=== PATIENT | female | born 1945 | race Caucasian/White ===

== ENCOUNTER → 2016-10-31 | Outpatient (CLI) | payer MEDICARE, BC ==
[~2016-10-31] MED LIST: ASPIRIN E.C. 8181 MG PO; ATROVENT I0.2 MG/1 M IH; FERROUS SU325 MG/TAB PO; FLEXERIL 1010 MG/TAB PO; FOLIC ACID800 MCG PO; FOSAMAX 70MG TA70 MG PO; LASIX 40MG TABL40 MG PO; PREDNISONE10 MG PO; PULMICORT0.5 MG/2 M IH; SINGULAIR 110 MG/TAB PO; THEO-24 20200 MG/CAP PO; VITAMINC500CH; ZYRTEC 10MG10 MG PO
== END ==
LOC: MHCPAIN 10:03
DX: G89.29 Other chronic pain (principal); M43.16 Spondylolisthesis, lumbar region; M53.2X6 Spinal instabilities, lumbar region; M47.817 Spondylosis without myelopathy or radiculopathy, lumbosacral region; Z87.891 Personal history of nicotine dependence
CPT/HCPCS: G0463

== ENCOUNTER → 2016-11-10 | Outpatient (CLI) | payer MEDICARE, BC | LOC: MHCPAIN 12:46 | DX: M47.817 Spondylosis without myelopathy or radiculopathy, lumbosacral region (principal) ==

== ENCOUNTER → 2016-11-15 | Outpatient (CLI) | payer MEDICARE, BC | LOC: MHCPAIN 12:41 | DX: G89.29 Other chronic pain (principal); M47.817 Spondylosis without myelopathy or radiculopathy, lumbosacral region; M43.16 Spondylolisthesis, lumbar region; Z87.891 Personal history of nicotine dependence | CPT/HCPCS: G0463 ==

== ENCOUNTER → 2016-11-17 | Outpatient (CLI) | payer MEDICARE, BC | LOC: MHCPAIN 14:08 | DX: M47.817 Spondylosis without myelopathy or radiculopathy, lumbosacral region (principal) ==

== ENCOUNTER → 2016-11-30 | Outpatient (CLI) | payer MEDICARE, BC | LOC: MHCPAIN 11:01 | DX: G89.29 Other chronic pain (principal); M47.817 Spondylosis without myelopathy or radiculopathy, lumbosacral region; M43.16 Spondylolisthesis, lumbar region | CPT/HCPCS: G0463 ==

== ENCOUNTER → 2016-12-08 | Outpatient (CLI) | payer MEDICARE, BC | LOC: MHCPAIN 10:43 | DX: M47.817 Spondylosis without myelopathy or radiculopathy, lumbosacral region (principal) | CPT/HCPCS: J1100 ==

== ENCOUNTER → 2016-12-22 | Outpatient (CLI) | payer MEDICARE, BC | LOC: MHCPAIN 10:02 | DX: M47.817 Spondylosis without myelopathy or radiculopathy, lumbosacral region (principal) | CPT/HCPCS: J1100 ==

== ENCOUNTER 2017-01-25 08:41 | Inpatient (IN) | payer MEDICARE, BC ==
[~2017-01-25] VITALS: Ht 170.2 cm; Wt 97.2 kg
[2017-02-24] MEDS ORDERED: ASPIRIN E.C. 8181 MG PO (10:08)
[2017-02-24] MEDS ORDERED: FOSAMAX 70MG TA70 MG PO (10:08)
[2017-02-24] MEDS ORDERED: FLEXERIL 1010 MG/TAB PO (10:08)
[2017-02-24] MEDS ORDERED: FOLIC ACID800 MCG PO (10:09)
[2017-02-24] MEDS ORDERED: FERROUS SU325 MG/TAB PO (10:09)
[2017-02-24] MEDS ORDERED: ATROVENT I0.2 MG/1 M IH (10:10)
[2017-02-24] MEDS ORDERED: VITAMINC500CH (10:10)
[2017-02-24] MEDS ORDERED: PREDNISONE10 MG PO (10:11)
[2017-02-24] MEDS ORDERED: SINGULAIR 110 MG/TAB PO (14:55)
[2017-02-27] VITALS (10 sets, daily range): BP systolic 109–129; BP diastolic 62–82; PULSE 57–83; TEMP 97.1–97.8
[2017-02-27] MEDS ORDERED: LASIX 40MG TABL40 MG PO (09:15)
[2017-02-27] MEDS ORDERED: THEO-24 20200 MG/CAP PO (09:16)
[2017-02-27] MEDS ORDERED: ZYRTEC 10MG10 MG PO (09:17)
[2017-02-27] MEDS ORDERED: PULMICORT0.5 MG/2 M IH (09:21)
[2017-02-28] VITALS (7 sets, daily range): BP systolic 99–115; BP diastolic 52–84; PULSE 58–83; TEMP 98.2–98.8
[2017-02-28 06:40] LABS: HEMATOCRIT 37.9 % (37.0-47.0); HEMOGLOBIN 12.2 g/dl (12.5-16.0)
[2017-03-01 04:10] VITALS: BP 117/68; PULSE 86; TEMP 98.3
[2017-03-01 06:53] LABS: HEMATOCRIT 39.6 % (37.0-47.0); HEMOGLOBIN 12.8 g/dl (12.5-16.0)
[2017-03-01 07:52] VITALS: BP 102/58; PULSE 86; TEMP 98.5
[2017-03-01 16:20] VITALS: BP 130/70; PULSE 80; TEMP 98.4
[2017-03-01 20:00] VITALS: BP 132/66; PULSE 109; TEMP 98.2
[2017-03-02 00:51] VITALS: BP 109/64; PULSE 95; TEMP 98.5
[2017-03-02 05:42] VITALS: BP 113/56; PULSE 88; TEMP 98.7
[2017-03-02 07:41] VITALS: BP 111/69; PULSE 81; TEMP 98.1
[2017-03-02 09:05] VITALS: BP 111/69; PULSE 81; TEMP 98.1
== END 2017-03-02 10:10 | disposition swing bed (61) | DRG 470 ==
LOC: OR 02-27 08:27 → JCC 02-27 08:27
PROVIDERS: Orthopaedic Surgery
PROC: 0SRC0J9 Replacement of Right Knee Joint with Synthetic Substitute, Cemented, Open Approach (ICD-10-PCS; principal; 2017-02-27 12:30)
DX: M17.11 Unilateral primary osteoarthritis, right knee (principal); I10 Essential (primary) hypertension; J45.909 Unspecified asthma, uncomplicated; Z87.891 Personal history of nicotine dependence
CPT/HCPCS: A9284; C1713; C1776; J0171; J0690; J1100; J2250; J2274; J2405; J2704; J3010; J7042; J7120

== ENCOUNTER → 2017-02-24 | Outpatient (CLI) | payer MEDICARE, BC | LOC: MHCPAIN 09:35 | DX: G89.29 Other chronic pain (principal); M47.817 Spondylosis without myelopathy or radiculopathy, lumbosacral region; M96.1 Postlaminectomy syndrome, not elsewhere classified; Z87.891 Personal history of nicotine dependence | CPT/HCPCS: G0463 ==

== ENCOUNTER 2019-04-26 09:45 | Inpatient (IN) | payer MEDICARE, BC ==
[~2019-04-26] VITALS: Ht 170.2 cm; Wt 89.0 kg
[2019-06-11] VITALS (10 sets, daily range): BP systolic 104–127; BP diastolic 58–82; PULSE 57–90; TEMP 98–99
[2019-06-11] MEDS ORDERED: TOPROL XL 25MG25 MG PO (07:26)
[2019-06-11] MEDS ORDERED: K-DUR20 MEQ PO (07:36)
--- NOTE | 2019-06-11 12:36 | NUR ---
PT TO ROOM 328 PER BED WITH JOCELYNE LALA PACU@ [id number]. PT IS A/O X3 DENIES PAIN OR MOVEMENT. CURRENTLY NO LOWER MOTOR CONTROL.DRESSING TO LEFT KNEE CDI WITH OCCLUSIVE ACED WRAP OVER INCISION. IV TO PUMP, SCDS BILATERALLU
--- NOTE | 2019-06-11 16:33 | NUR ---
Computational Mathematician met with patient, patient's son Emery (ph#[phone]), and patient's daughter Sandy (ph#[phone]) to discuss discharge planning. Patient lives in [place] with her , Reji (ph#[phone]). Patient sees Dr. Gaspar for primary care and obtains her medications from [email or web address], both in [place]. Patient reports she has a walker, wheelchair, and cane at home. Patient reports independence with ADLS. Patient has Advance Directives in place and in the EMR. Patient states some concern with returning home upon discharge although she reports three out of her four children live close by and can provide supports as needed. Patient reports Reji may not be able to provide much assistance due to underlying medical concerns. SW will continue to follow.
--- NOTE | 2019-06-11 18:49 | NUR ---
REPORT TO KRUPA LALA.
--- NOTE | 2019-06-11 19:32 | NUR ---
Report received from DAI Lauren. Patient noted to be crying d/t pain. [place] and morphine was given with minimal relief from dayshift. Oxycodone given. Awaiting results at this time. Patient able to feel everything except from the ankle down. 2 assist from staff to get up to the commode d/t numbness to foot. Patient stated this was more painful than lying in bed. Ice applied to knee. Will continue to monitor.
--- NOTE | 2019-06-11 23:21 | NUR ---
Patient pain noted to be not controlled by current regimen. Called Bruce Torres and notified him. He ordered Toradol 30mg IV q6hrs PRN for 24 hours. This was administered and during administration patient became nauseous. IV Zofran given. Patient had stated her pain was "a 12 or 15/10" on the pain scale and she was noted to be crying. After the toradol was given patient stated her pain was better, but still at 10. Patient had stopped crying at this time. Education provided that she will not be completely pain free, and she verbalized understanding. Will continue to attempt pain control throughout the shift. Currently resting with eyes closed and CPAP on.
[2019-06-12 00:03] VITALS: BP 114/58; PULSE 78; TEMP 98.7
--- NOTE | 2019-06-12 00:12 | NUR ---
Patient ambulated to the bathroom with assistance of staff. States pain is "like a headache in my knee". Rates 01/28. PRN pain medication given. Will continue to monitor.
[2019-06-12 03:42] VITALS: BP 130/62; PULSE 79; TEMP 98.1
--- NOTE | 2019-06-12 04:29 | NUR ---
This nurse entered the room and patient was sitting in her recliner. When asked she stated that she had moved there by herself, but that it was a difficult move. Patient educated on the imporatnce of calling for help and the risks of falling. Patient given call light. PRN pain medication given. Upon reassessment of pain medication patient was sitting on the edge of her bed. Patient stated she transferred herself. Bed alarm placed and patient educated again. Noted to be nauseous. Crackers given to help calm her stomach. Zofran had been given with pain medication.
--- NOTE | 2019-06-12 06:11 | NUR ---
Patient is resting in bed with CPAP on and eyes closed at this time. Bed alarm on. Call light in reach. Will report off to day shift nurse.
--- NOTE | 2019-06-12 06:43 | NUR ---
Report from Senia LALA.
--- NOTE | 2019-06-12 07:00 | NUR ---
Patient ambulated to the bathroom. Change clothes, stand by assist
[2019-06-12 07:30] VITALS: BP 99/67; PULSE 79
--- NOTE | 2019-06-12 07:45 | NUR ---
Reported on to Leonidas LALA
--- NOTE | 2019-06-12 08:44 | NUR ---
PT UP TO RECLINER AFTER USING BR. REPORTING INCREASING PAIN. PO PAIN MEDS GIVEN ORDERED. LAST DOSE OF ANCEF GIVEN, PT WANTING MORE TORDOL. NEXT DOSE DUE @0940. EXPLAINED THAT WE MUST WAIT 6 HR BTWN DOSES ORDERED. DRESSING TO LEFT KNEE CDI WITH SOREN WRAP OVER DRESSING. PT VERBALIZED UNDERSTANDING.
--- NOTE | 2019-06-12 09:26 | NUR ---
SW met with the patient to discuss a skilled stay. The patient's first choice is [facility]. SW explained to the patient that family will have to provide transportation. Patient was in agreeance. The second choice is [facility]. The patient choice form was placed in the patient's chart. SW faxed referrals and awaiting responses. OPAL will continue to follow.
--- NOTE | 2019-06-12 09:30 | NUR ---
Patient assessment complete. Pt had Eddie wrap removed & Gauge. Litle blood. Incision intact with arnoldo, edges pink . Pain level under control. Aquacel applied to Pt left knee. Pt used IS hourly.
[2019-06-12 10:20] VITALS: BP 110/67; PULSE 74; TEMP 98.9
--- NOTE | 2019-06-12 10:34 | NUR ---
AGREE WITH STUDENT'S SHIFT ASSESSMENT.
--- NOTE | 2019-06-12 10:54 | NUR ---
Reported off to Leonidas LALA
--- NOTE | 2019-06-12 11:10 | NUR ---
Initial visit; Patient thanked Transfer Controller for looking in on her, offering prayer and keeping her in Transfer Controller's prayers.
[2019-06-12 16:45] VITALS: BP 126/60; PULSE 80; TEMP 98
--- NOTE | 2019-06-12 18:57 | NUR ---
REPORT TO KRUPA LALA.
[2019-06-12 20:22] VITALS: BP 104/58; PULSE 85; TEMP 98.6
[2019-06-13] VITALS (7 sets, daily range): BP systolic 92–118; BP diastolic 56–71; PULSE 75–95; TEMP 98–98.9
--- NOTE | 2019-06-13 00:36 | NUR ---
Patient noted to not call for help ambulating to the restroom. Bed alarm on. When bed alarm went off, patient stated, "That's rude." when explained what it was. Reinforced that it was for her safety. Pain well controlled so far this shift. Will continue to monitor.
--- NOTE | 2019-06-13 07:04 | NUR ---
report from Lisa LALA.
--- NOTE | 2019-06-13 08:30 | NUR ---
PT UP IN RECLINER ATE SOME BREAKFAST, DRESSING TO RIGHT KNEE CDI. PT WORKING WITH OT FOR SHOWER AT THIS TIME. PT HAS HAD NAUSEA EVERY MEAL TIME WHEN LOOKING AT THE FOOD TRAY. NOT EATING MUCH.
--- NOTE | 2019-06-13 15:43 | NUR ---
Line Builder spoke with Rosa at [facility] about patient discharge to occur tomorrow. Rosa advised that they would be able to accept once a Dr to report has been conducted. OPAL provided phone numbers for . and Nurse report to DAI Lauren. OPAL contacted Debbie at [facility] who advised they would not be able to accept for discharge tomorrow, but [facility] in [place] may be able to accept. OPAL contacted Bridgett (ph#[phone]) at [facility] who advised they would be able to accept as second preference if needed. OPAL met with patient who confirmed preferences and also confirmed for both preferences, family would be able to provide transportation upon discharge. OPAL presented IM form to patient who understood her rights and provided signature. OPAL will continue to follow.
--- NOTE | 2019-06-13 19:05 | NUR ---
CONTACTED KARRIE HODGE AND UPDATED ON PT STATUS.
--- NOTE | 2019-06-13 20:00 | NUR ---
Report received. Assumed care for business intelligence etl developer. Assessment complete. VS stable. Denies need for pain medications. Sitting up in chair. Plan of care discussed for ambulation this shift, hs meds/pain meds and calling for bathroom needs. Verbalizes understanding. Aquacell to left knee-small pea size drainage spot. Fresh ice pack applied. Instructed on IS and ankle pumps. Denies questions or concerns. Call light in reach/chair alarm on. Will monitor.
--- NOTE | 2019-06-13 20:30 | NUR ---
Ambulated in hallway with two stand-by assist with walker/gait belt for approx 150 feet. Tolerated well
[2019-06-14 04:00] VITALS: BP 109/67; PULSE 92; TEMP 98.1
--- NOTE | 2019-06-14 04:30 | NUR ---
Rested off and on this shift. Has been up often due to needing to void. States "my water pill time must be off." Denies urinary symptoms besides urgency. Denies need for pain medication. Denies shortness of breath/nausea. Fresh ice pack applied to left knee. Call light in reach. Bed in low/wheels locked. Will monitor.
--- NOTE | 2019-06-14 06:45 | NUR ---
awake sitting up in recliner, bedside shift report received from DAI Tobias
[2019-06-14 07:04] VITALS: BP 101/63; PULSE 80; TEMP 98.3
--- NOTE | 2019-06-14 08:00 | NUR ---
Shift assessment completed. VS within expected values for this patient. Patient denies pain and nausea at time of assessment. Dressing CDI. Denies dyspnea and chest pain. Following morning shift assessment, patient received breakfast tray and as she was getting syrup on her pancakes, she stated she was starting to feel nauseous and wasn't wanting to eat much. Patient consumed half of a banana but asked to have the rest of her tray removed. PRN Zofran given via IV as ordered. Patient stated this was effective. Patient stated her nausea tends to occur only during meals.
[2019-06-14] MEDS ORDERED: ASPIRIN 32325 MG/TA1 PO (08:16)
[2019-06-14] MEDS ORDERED: NORCO 325 MG-7.1 TAB PO (08:16)
[2019-06-14] MEDS ORDERED: ROXICODONE 55 MG/TAB PO (08:17)
--- NOTE | 2019-06-14 08:25 | NUR ---
remains up in recliner, medicated with zofran 4mg slow IV by student RN for c/os nausea, assisted up to bathroom, has steady gait, full assessment completed, have reviewed assessment completed by student and in agreement with that assessment
[2019-06-14 08:40] VITALS: BP 101/63; PULSE 80; TEMP 98.3
--- NOTE | 2019-06-14 09:00 | NUR ---
The patient is to discharge today, 06/14 to [facility]. The patient's will provide transportation. OPAL faxed discharge orders to Rosa at [facility]. There are no additional needs at this time.
--- NOTE | 2019-06-14 09:57 | NUR ---
Resting in recliner. Ice pack applied to left knee. Patient consumed packet of pudding and tolerated well. sitting on bed.
--- NOTE | 2019-06-14 10:35 | NUR ---
discharged per WC
--- NOTE | 2019-06-14 11:00 | NUR ---
called [facility] to give report and staff was busy, will return the call to me
--- NOTE | 2019-06-14 11:42 | NUR ---
report given to DAI Yan at [facility]
== END 2019-06-14 10:35 | disposition swing bed (61) | DRG 470 ==
LOC: JCC 06-11 06:25
PROVIDERS: ADMIT Orthopaedic Surgery
PROC: 0SRD0J9 Replacement of Left Knee Joint with Synthetic Substitute, Cemented, Open Approach (ICD-10-PCS; principal; 2019-06-11 09:20)
DX: M17.12 Unilateral primary osteoarthritis, left knee (principal); I50.9 Heart failure, unspecified; I11.0 Hypertensive heart disease with heart failure; J44.9 Chronic obstructive pulmonary disease, unspecified; E78.00 Pure hypercholesterolemia, unspecified; Z90.710 Acquired absence of both cervix and uterus; Z87.891 Personal history of nicotine dependence; Z88.2 Allergy status to sulfonamides; G47.33 Obstructive sleep apnea (adult) (pediatric)
CPT/HCPCS: A9284; C1776; J0690; J1885; J2250; J2270; J2405; J2704; J2795; J7042; J7120